=== PATIENT | female | born 1950 ===

== ENCOUNTER 2021-05-21 18:12 | Emergency (ER) | payer OTHER ==
[~2021-05-21] VITALS: Ht 172.7 cm; Wt 85.4 kg
[2021-05-21 18:25] LABS: BASOPHILS % (AUTO) 1 % (0-1); EOSINOPHILS % (AUTO) 4 % (1-7); LYMPHOCYTES % (AUTO) 36 % (22-44); MEAN CORPUSCULAR HEMOGLOBIN 33.4 pg (27.0-34.8); MEAN CORPUSCULAR HGB CONC 34.4 g/dL (32.4-35.8); MEAN PLATELET VOLUME 7.6 fL (7.4-10.4); MONOCYTES % (AUTO) 8 % (2-9); NEUTROPHILS % (AUTO) 52 % (42-75); PLATELET COUNT 284 x10^3/uL (130-400); RED BLOOD COUNT 4.32 x10^6/uL (3.82-5.3); RED CELL DISTRIBUTION WIDTH 13.1 % (9.6-15.2)
--- NOTE | 2021-05-21 18:26 | NUR ---
PT BROUGHT IN BY [facility] FROM HOME CODE NEURO FOR STROKE LIKE SYMPTOMS. LAST KNOWN NORMAL 1729, PT PRESENTS NONVERBAL, LEFT SIDED DEFICITS, AND RIGHT GAZE.
[2021-05-21 18:28] VITALS: BP 104/75
[2021-05-21] MEDS ORDERED: PLEASE ENTER HEIGHT AND WEIGHT MC SCH (18:30)
[2021-05-21] MEDS ORDERED: SODIUM CHLORIDE 0.9% 1,000 ML IV ONE (18:30)
[2021-05-21] MEDS ORDERED: PLEASE ENTER ALLERGIES MC SCH (18:30)
[2021-05-21] MEDS ORDERED: OMNIPAQUE 350 MG/ML, 100ML BOTTLE ONE (18:36)
--- NOTE | 2021-05-21 18:37 | NUR ---
ERMD LAW AT BEDSIDE
[2021-05-21 18:39] LABS: INTERNATIONAL NORMALIZED RATIO 0.95 (0.93-1.1); PROTHROMBIN TIME 10.2 Seconds (9.6-11.5)
[2021-05-21] MEDS ORDERED: ALTEPLASE 8 MG in SYRINGE 1 EA IVPush STA ×2 (18:50→19:09)
[2021-05-21] MEDS ORDERED: ALTEPLASE IV STA ×3 (18:50→19:09)
--- NOTE | 2021-05-21 18:52 | NUR ---
Report received from RAD Hooker. This Rn to assume care.
--- NOTE | 2021-05-21 18:58 | NUR ---
Patient to receive TPA.
[2021-05-21] MEDS ORDERED: ALTEPLASE IV ONE ×2 (19:00)
--- NOTE | 2021-05-21 19:15 | NUR ---
TPA initiated with Micheal RN verifying.
[2021-05-21] MEDS ORDERED: METOCLOPRAMIDE 5 MG/ML, 2ML IVPush ONE (19:30)
[2021-05-21] MEDS ORDERED: DIPHENHYDRAMINE 50 MG/ML, 1ML IVPush ONE (19:30)
[2021-05-21] MEDS ORDERED: METOCLOPRAMIDE 5 MG/ML, 2ML ONE (19:34)
[2021-05-21] MEDS ORDERED: DIPHENHYDRAMINE 50 MG/ML, 1ML ONE (19:34)
--- NOTE | 2021-05-21 19:59 | NUR ---
Dayan Pitts [phone]
--- NOTE | 2021-05-21 20:10 | NUR ---
Spoke with patient's neighbor, Dayan, who reported she is the one who found patient in an altered state. She last saw patient normal at approx 1730.
--- NOTE | 2021-05-21 20:21 | NUR ---
Report given to RAD [facility] at [facility]. EMS arrived to transport.
[2021-05-21] MEDS ORDERED: ALTEPLASE 1 ML ONE (20:28)
== END 2021-05-21 20:28 | disposition short-term general hospital (02) ==
LOC: EDBD 18:12 → ED 18:30
DX: I63.89 Other cerebral infarction (principal)
CPT/HCPCS: 36415; 37195; 70450; 70496; 70498; 80047; 85025; 85610; 85730; 93005; 99291; J2997; Q9967